=== PATIENT | male | born 1995 | race Caucasian/White ===

== ENCOUNTER 2019-02-12 13:59 | Emergency (ER) | payer SELFPAY ==
[2019-02-12 14:16] VITALS: TEMP 97
[2019-02-12] MEDS ORDERED: KETOROLAC TROMETHAMINE INJ 30 MG/ML VIAL IV ONE (14:25)
--- NOTE | 2019-02-12 14:32 | ED.PDOC ---
History of Present Illness - General Chief Complaint: GI Problem Stated Complaint: right side abd pain Time Seen by Provider: 02/12/19 14:17 Source: patient Exam Limitations: no limitations - History of Present Illness Initial Comments: C/O RLQ PAIN. ONSET 2 DAYS AGO. INTERMITTENT, SHARP, NON RADIATING. WORSE TODAY. PT STATES HE'S CONCERNED ABOUT HIS APPENDIX Severity: moderate Improving Factors: other - RESOLVED SPONTANEOUSLY, PT CURRENTLY NOT HAVING NEAR THE PAIN HE WAS PREVIOUSLY Worsening Factors: nothing Associated Symptoms: denies symptoms Allergies/Adverse Reactions: Allergies NO KNOWN ALLERGY Allergy (Verified 02/12/19 14:16) Review of Systems - Review of Systems Constitutional: Denies: chills, fever EENTM: States: no symptoms reported Respiratory: States: no symptoms reported Cardiology: States: no symptoms reported Gastrointestinal/Abdominal: States: abdominal pain. Denies: diarrhea, nausea, vomiting Genitourinary: Denies: dysuria, frequency, hematuria Musculoskeletal: Denies: back pain, joint pain, joint swelling, neck pain Skin: Denies: change in color, dryness, rash Neurological: Denies: numbness, paresthesia, weakness Endocrine: States: no symptoms reported Hematologic/Lymphatic: States: no symptoms reported Past Medical History (General) - Patient Medical History Hx Asthma: Yes Hx Cardiac Disorders: No Hx Hypertension: No Hx Diabetes: No Hx Gastroesophageal Reflux: No Hx Cancer: No - Vaccination History Hx Tetanus, Diphtheria Vaccination: Yes Hx Influenza Vaccination: No Hx Pneumococcal Vaccination: No Immunizations Up to Date: No - Social History Hx Tobacco Use: No Hx Chewing Tobacco Use: Yes Hx Alcohol Use: Yes Hx Substance Use: No Hx Substance Use Treatment: No Hx Depression: No Family Medical History - Family History Father Living Status: Still Living Hx Cardiac Disease: Yes Mother Living Status: Still Living Hx Family;Other: MIGRAINE Physical Exam - Physical Exam General Appearance: Alert, No apparent distress Eye Exam: bilateral normal Ears, Nose, Throat: hearing grossly normal, normal ENT inspection Neck: non-tender, full range of motion, supple Respiratory: lungs clear, no respiratory distress Cardiovascular/Chest: regular rate, rhythm, no murmur Gastrointestinal/Abdominal: soft, no organomegaly, no pulsatile mass, other - MINIMAL RLQ TTP, NO G/R Back Exam: normal inspection, no CVA tenderness, no vertebral tenderness Extremity: normal range of motion, non-tender, normal inspection Neurologic: alert, normal mood/affect Skin Exam: normal color, warm/dry Lymphatic: no adenopathy Progress - Progress Progress: 02/12/19 15:41 PAIN FREE FEELS BETTER. Departure - Departure Clinical Impression: Abdominal pain Qualifiers: Abdominal location: right lower quadrant Qualified Code(s): R10.31 - Right lower quadrant pain ICD-10 Supporting Text: RESOLVED Time of Disposition: 15:46 Disposition: Discharge to Home or Self Care Condition: Excellent Departure Forms: ED Discharge - Pt. Copy, Patient Portal Self Enrollment Instructions: DI for Abdominal Pain-Adult Referrals: KRIS RENE [Primary Care Provider] - 1-2 Weeks
[2019-02-12 16:24] VITALS: BP 125/64; O2SAT 100
== END 2019-02-12 15:56 | disposition home or self-care (01) ==
LOC: ER 13:59
DX: R10.31 Right lower quadrant pain (principal); J45.909 Unspecified asthma, uncomplicated; Z87.891 Personal history of nicotine dependence
CPT/HCPCS: 36415; 80048; 81001; 85025; J1885